=== PATIENT | male | born 1950 | race Caucasian/White ===

== ENCOUNTER 2017-01-31 07:16 | Day surgery (SDC) | payer MEDICARE, BC ==
[~2017-01-31] VITALS: Ht 175.3 cm; Wt 68.0 kg
== END 2017-01-31 08:33 | disposition home or self-care (01) ==
LOC: DS 07:16 → OPS 07:16 → DS 08:00 → OPS 08:00
PROC: 08RJ3JZ Replacement of Right Lens with Synthetic Substitute, Percutaneous Approach (ICD-10-PCS; principal; 2017-01-31)
DX: H25.11 Age-related nuclear cataract, right eye (principal); E78.00 Pure hypercholesterolemia, unspecified; I51.9 Heart disease, unspecified; Z87.820 Personal history of traumatic brain injury; Z98.890 Other specified postprocedural states
CPT/HCPCS: 00140; J2250

== ENCOUNTER 2017-02-12 08:12 | Day surgery (SDC) | payer MEDICARE, BC ==
[~2017-02-12] VITALS: Ht 175.3 cm; Wt 68.0 kg
--- NOTE | 2017-02-12 11:39 | NUR ---
02/12/17 1139 Julianne Clemente 1130 BRICK SETTER AT BEDSIDE. PT USING URINAL, 500ML OUTPUT, CLEAR YELLOW URINE. BRICK SETTER VERBAL ORDER FOR ANOTHER 500ML OF LR IV NOW.
--- NOTE | 2017-02-12 18:19 | EKG ---
[facility] [address] [facility] [place] [address] Signed Sinus bradycardia with frequent premature ventricular complexes Rightward axis Borderline ECG No previous ECGs available Confirmed by WALKER ANDRADE MD ([id number]) on 02/12/2017 6:18:50 PM Electronically Signed By: WALKER ANDRADE MD 02/12/17 1819 PATIENT NAME: KILEY OLSEN Electrocardiogram DATE OF : 48 PHYSICIAN: WALKER ANDRADE MD REPORT #: [id number] REPORT IS CONFIDENTIAL AND NOT TO BE RELEASED WITHOUT AUTHORIZATION
== END 2017-02-12 12:25 | disposition home or self-care (01) ==
LOC: OPS 08:12 → DS 08:12 → OPS 09:15 → DS 09:15 → OPS 12:25
PROC: 08RK3JZ Replacement of Left Lens with Synthetic Substitute, Percutaneous Approach (ICD-10-PCS; principal; 2017-02-12)
DX: H25.812 Combined forms of age-related cataract, left eye (principal); I25.10 Atherosclerotic heart disease of native coronary artery without angina pectoris; Z95.5 Presence of coronary angioplasty implant and graft
CPT/HCPCS: 00140; 93005; 93010; J2250; J7120

== ENCOUNTER 2024-03-23 06:00 | Emergency (ER) | payer MEDICARE, BC ==
[~2024-03-23] VITALS: Ht 172.7 cm; Wt 68.2 kg
[~2024-03-23 06:00] MED LIST: ASPIRIN81 MG PO; FISH OIL + D31 EACH PO
[2024-03-23 06:15] LABS: BASOPHILS 4.2 % (0-2); HEMATOCRIT 48.2 % (35.0-50.0); HEMOGLOBIN 16.2 g/dL (12.0-18.0); LYMPHOCYTES 23.7 % (24-44); MCH 33.2 (27-36); MCHC 33.7 g/dl (30-36); MCV 98.5 fl (81-99); MONOCYTES 12.8 % (0-12); NEUTROPHILS 52.3 % (39-80); PLATELET COUNT 181 K/uL (140-440); RBC 4.89 M/ul (4.3-5.7); RDW 12.9 (10.5-15.0)
[2024-03-23] MEDS ORDERED: FAMOTIDINE 20 MG/ 2 ML VIAL IV ONE (06:15)
[2024-03-23] MEDS ORDERED: ASPIRIN 325 MG TAB PO ONE (06:15)
[2024-03-23] MEDS ORDERED: NITROGLYCERIN 0.4 MG SUBL SL PRN (06:15)
[2024-03-23] MEDS ORDERED: ASPIRIN 81 MG CHEW PO ONE (06:15)
[2024-03-23 06:32] LABS: ALBUMIN 3.8 g/dL (3.4-5.0); ALBUMIN/GLOBULIN RATIO 1.09 (1.1-2.4); BILIRUBIN, TOTAL 0.3 ng/dL (0.2-1.0); BUN/CREATININE RATIO 30.63 (6.0-28.6); CALCIUM 9.1 mg/dL (8.5-10.1); CREATININE, SERUM 1.11 mg/dL (0.70-1.30); PROTEIN, TOTAL 7.3 g/dL (6.4-8.2)
[2024-03-23 07:25] LABS: INFLUENZA B NAA NEGATIVE (NEGATIVE); RESPIRATORY SYNCYTIAL VIR NAA NEGATIVE (NEGATIVE)
[2024-03-23 08:43] VITALS: BP 172/80
--- NOTE | 2024-03-26 20:24 | EKG ---
[facility] [address] [facility] [place] [address] Signed Sinus rhythm with occasional premature ventricular complexes Otherwise normal ECG No previous ECGs available Confirmed by Vikas Gonzales DO ([id number]) on 03/26/2024 8:24:04 PM Electronically Signed By: VIKAS GONZALES DO 03/26/242023 PATIENT NAME: KILEY OLSEN Electrocardiogram DATE OF : 48 PHYSICIAN: VIKAS GONZALES DO REPORT #: [id number] REPORT IS CONFIDENTIAL AND NOT TO BE RELEASED WITHOUT AUTHORIZATION
== END 2024-03-23 08:46 | disposition home or self-care (01) ==
LOC: ED 06:00
PROVIDERS: Internal Medicine
DX: R06.02 Shortness of breath (principal); R07.89 Other chest pain; I25.10 Atherosclerotic heart disease of native coronary artery without angina pectoris; Z95.5 Presence of coronary angioplasty implant and graft; Z79.82 Long term (current) use of aspirin; Z79.899 Other long term (current) drug therapy
CPT/HCPCS: 36415; 71045; 80053; 83735; 83880; 84484; 85025; 85379; 87502; 93005; 93010; 96374; 99285-25; A9270; U0002

== ENCOUNTER 2024-03-30 08:57 | Emergency (ER) | payer MEDICARE, BC ==
[~2024-03-30] VITALS: Ht 172.7 cm; Wt 67.1 kg
--- OUTSIDE RECORDS SUMMARY | 2024-03-30 09:00 | XMS ---
PreManage Notification: KILEY OLSEN [facility] Director Events No recent Security Events currently on file CRITERIA MET - [facility] - 2 Visits in 30 Days CARE PROVIDERS There are no care providers on record at this time. Jemma has no Care Guidelines for this patient. Dre VISIT COUNT (12 MO.) 2 [facility] TOTAL 2 NOTE: Visits indicate total known visits. ED/[facility] VISIT TRACKING (12 MO.) [facility]24 08[facility] [place] [facility] COMPLAINT: - DIZZY 03/23/2024 06:01 [facility] [place] TYPE: Emergency COMPLAINT: - SHORTNESS OF BREATH DIAGNOSES: - Atherosclerotic heart disease of [place] coronary artery without angina pectoris - penitentiary (current) use of aspirin - Other chest pain - Other intermediate (current) drug therapy - Presence of coronary angioplasty implant and graft - Shortness of breath INPATIENT VISIT TRACKING (12 MO.) No inpatient visits to display in this time frame [id number]
[2024-03-30 09:18] LABS: BASOPHILS 0.9 % (0-2); EOSINOPHILS 2.5 % (0-6); HEMATOCRIT 47.5 % (35.0-50.0); HEMOGLOBIN 16.4 g/dL (12.0-18.0); LYMPHOCYTES 22.2 % (24-44); MCH 33.7 (27-36); MCHC 34.5 g/dl (30-36); MCV 97.9 fl (81-99); MONOCYTES 11.4 % (0-12); PLATELET COUNT 183 K/uL (140-440); RBC 4.86 M/ul (4.3-5.7); RDW 12.9 (10.5-15.0)
[2024-03-30 09:35] LABS: ALBUMIN 3.8 g/dL (3.4-5.0); ALBUMIN/GLOBULIN RATIO 1.12 (1.1-2.4); ANION GAP 10.7 (7-21); BILIRUBIN, TOTAL 0.5 ng/dL (0.2-1.0); BUN/CREATININE RATIO 23.23 (6.0-28.6); CALCIUM 9.6 mg/dL (8.5-10.1); CREATININE, SERUM 0.99 mg/dL (0.70-1.30); POTASSIUM 3.7 mmol/L (3.5-5.1); PROTEIN, TOTAL 7.2 g/dL (6.4-8.2)
[2024-03-30 10:48] VITALS: BP 171/66
--- NOTE | 2024-03-30 19:20 | EKG ---
[facility] [address] [facility] [place] [address] Signed Sinus bradycardia Otherwise normal ECG When compared with ECG of 23-MAR-2024 06:05, premature ventricular complexes are no longer present Confirmed by Joey Hickey MD ([id number]) on 03/30/2024 7:20:39 PM Electronically Signed By: JOEY HICKEY MD 03/30/241919 PATIENT NAME: KILEY OLSEN RODMARGO Electrocardiogram DATE OF : 48 PHYSICIAN: JOEY HICKEY MD REPORT #: [id number] REPORT IS CONFIDENTIAL AND NOT TO BE RELEASED WITHOUT AUTHORIZATION
== END 2024-03-30 10:48 | disposition home or self-care (01) ==
LOC: ED 08:57
PROVIDERS: Emergency Medicine
DX: R06.00 Dyspnea, unspecified (principal); I25.10 Atherosclerotic heart disease of native coronary artery without angina pectoris; Z95.5 Presence of coronary angioplasty implant and graft; Z79.82 Long term (current) use of aspirin; Z79.899 Other long term (current) drug therapy
CPT/HCPCS: 36415; 80053; 83880; 84443; 84484; 85025; 85379; 99285

== ENCOUNTER 2024-04-04 03:50 | Emergency (ER) | payer MEDICARE, BC ==
[~2024-04-04] VITALS: Ht 172.7 cm; Wt 69.9 kg
--- OUTSIDE RECORDS SUMMARY | 2024-04-04 03:57 | XMS ---
PreManage Notification: KILEY OLSEN [employer] Attendant Events No recent Security Events currently on file CRITERIA MET - [facility] - 2 Visits in 30 Days CARE PROVIDERS There are no care providers on record at this time. Jemma has no Care Guidelines for this patient. Dre VISIT COUNT (12 MO.) 3 [facility] [place] [facility]. TOTAL 3 NOTE: Visits indicate total known visits. ED/C VISIT TRACKING (12 MO.) 04/04/2024 03:50 [facility] [place] TYPE: Emergency COMPLAINT: - SOB 03/30/2024 08:57 [facility] [place] TYPE: Emergency COMPLAINT: - DIZZY DIAGNOSES: - Atherosclerotic heart disease of [place] coronary artery without angina pectoris - Dyspnea, unspecified - Hyperventilation - engine lathe tender (current) use of aspirin - Other surveyor mine (current) drug therapy - Presence of coronary angioplasty implant and graft 03/23/2024 06:01 [facility] [place] TYPE: Emergency COMPLAINT: - SHORTNESS OF BREATH DIAGNOSES: - Atherosclerotic heart disease of [place] coronary artery without angina pectoris - engine lathe tender (current) use of aspirin - Other chest pain - Other surveyor mine (current) drug therapy - Presence of coronary angioplasty implant and graft - Shortness of breath INPATIENT VISIT TRACKING (12 MO.) No inpatient visits to display in this time frame [id number]
[2024-04-04 04:13] LABS: BASOPHILS 0.8 % (0-2); EOSINOPHILS 4.6 % (0-6); HEMATOCRIT 46.2 % (35.0-50.0); HEMOGLOBIN 15.8 g/dL (12.0-18.0); LYMPHOCYTES 20.5 % (24-44); MCH 33.4 (27-36); MCHC 34.2 g/dl (30-36); MCV 97.5 fl (81-99); MONOCYTES 11.6 % (0-12); NEUTROPHILS 62.5 % (39-80); PLATELET COUNT 182 K/uL (140-440); RBC 4.74 M/ul (4.3-5.7)
[2024-04-04 04:19] LABS: INR 0.95 (0.80-1.30); PROTIME 12.6 Sec (11.2-14.2)
[2024-04-04 04:24] LABS: ALBUMIN 3.6 g/dL (3.4-5.0); ALBUMIN/GLOBULIN RATIO 1.03 (1.1-2.4); BILIRUBIN, TOTAL 0.5 ng/dL (0.2-1.0); BUN/CREATININE RATIO 36.36 (6.0-28.6); CALCIUM 8.8 mg/dL (8.5-10.1); CREATININE, SERUM 0.99 mg/dL (0.70-1.30); PROTEIN, TOTAL 7.1 g/dL (6.4-8.2)
[2024-04-04 05:09] LABS: BILIRUBIN, URINE NEGATIVE (negative); BLOOD/HGB, URINE TRACE-I (Negative); KETONE, URINE NEGATIVE (Negative); LEUK ESTERASE, URINE NEGATIVE (negative); NITRITE, URINE NEGATIVE (negative); PH, URINE 6.5 (5-7)
[2024-04-04 05:15] LABS: EPITHELIAL CELLS, URINE SQUAMOUS 1+ /lpf (0-1+)
[2024-04-04 05:16] LABS: BACTERIA, URINE RARE /hpf (negative); CASTS, URINE NONE SEEN \\lpf; COLLECTION TYPE, URINE CLEAN CATCH; CRYSTALS, URINE NONE SEEN (0-1+); REFLEX CULTURE, URINE No (No); WHITE BLOOD CELLS, URINE 0-1 /HPF (0-5)
[2024-04-04 05:25] LABS: AMPHETAMINES, URINE NEGATIVE (NEGATIVE); BARBITURATES, URINE NEGATIVE (NEGATIVE); BENZODIAZEPINE, URINE NEGATIVE (NEGATIVE); BUPRENORPHINE, URINE NEGATIVE (NEGATIVE); CANNABINOID, URINE NEGATIVE (NEGATIVE); COCAINE, URINE NEGATIVE (NEGATIVE); ECSTASY, URINE NEGATIVE (NEGATIVE); FENTANYL, URINE NEGATIVE (NEGATIVE); METHADONE, URINE NEGATIVE (NEGATIVE); OPIATES, URINE NEGATIVE (NEGATIVE); OXYCODONE, URINE NEGATIVE (NEGATIVE); PHENCYCLIDINE, URINE NEGATIVE (NEGATIVE)
[2024-04-04 05:34] VITALS: BP 147/72
--- NOTE | 2024-04-04 21:58 | EKG ---
[facility] [address] [place] [address] Signed Sinus bradycardia with 1st degree AV block Otherwise normal ECG When compared with ECG of 30-MAR-2024 09:11, [place] interval has increased Confirmed by Jose Steel MD () on 04/04/2024 9:58:13 PM Electronically Signed By: JOSE STEEL MD 04/04/24 2158 PATIENT NAME: PRETTYKILEYDELMI VELASCOMARGO Electrocardiogram DATE OF : 48 PHYSICIAN: JOSE STEEL MD REPORT #: [id number] REPORT IS CONFIDENTIAL AND NOT TO BE RELEASED WITHOUT AUTHORIZATION
== END 2024-04-04 05:35 | disposition home or self-care (01) ==
LOC: ED 03:50
PROVIDERS: Family Medicine
DX: R53.1 Weakness (principal); Z95.5 Presence of coronary angioplasty implant and graft; Z79.82 Long term (current) use of aspirin; Z79.899 Other long term (current) drug therapy
CPT/HCPCS: 36415; 70450; 71045; 80053; 80307; 81001; 83735; 84484; 85025; 85610; 93005; 93010; 99285-25; G0480

== ENCOUNTER 2024-06-19 10:18 | Inpatient (IN) | payer MEDICARE, BC ==
[~2024-06-19] VITALS: Ht 172.7 cm; Wt 65.3 kg
--- NOTE | 2024-06-19 13:10 | NUR ---
PT ARRIVES TO FLOOR VIA WHEELCHAIR AND ACCOMPANIED BY . PT REQUESTING TO USE THE RESTROOM. AMBULATES WITH 1PA TO RESTROOM, CHANGES INTO GOWN, AND HAS SMALL BOWEL MOVEMENT. PT ASSISTED WITH ABBEY-CARE. PT AMBULATES WITH 1PA TO BED. WT AND VS OBTAINED.
[2024-06-19 13:17] VITALS: BP 177/90
[2024-06-19] MEDS ORDERED: ROSUVASTATIN CA20 MG PO (13:17)
--- NOTE | 2024-06-19 14:00 | NUR ---
ADMISSION COMPLETED. PT DOES NOT HAVE IV ACCESS, NOTIFIED AND STATES THIS IS OKAY. LUNG SOUNDS CLEAR THROUGHOUT, HEART RATE REGULAR. BOWEL TONES ACTIVE, ABDOMEN IS SOFT AND NON-TENDER, PT REPORTS HE FEELS HE WILL HAVE ANOTHER BOWEL MOVEMENT THIS AFTERNOON. SURGICAL DRESSING TO R HIP/FLANK, CLEAN DRY AND INTACT. SURGICAL DRESSING TO LUMBAR BACK IS CLEAN DRY AND INTACT WITH BANDAID OFF TO R OF DRESSING WHERE HEMOVAC WAS REMOVED AT [facility] THIS MORNING. PT REPORTING LOWER BACK PAIN RATED 5/10, STATES HIS GOAL PAIN LEVEL IS 0/10 BUT DOES NOT REQUEST INTERVENTIONS AT THIS TIME. PT SUPPLIED WITH TWO WARM BLANKETS, HE IS REPORTING THE TRIP OVER WAS COLD. AND PT REPORT THAT PT HAD A DIFFICULT TIME COMING AROUND AFTER SURGERY AND THAT HE WAS CONFUSED EVEN TO PERSON UNTIL THIS SUNDAY BUT HE HAS BEEN FEELING BETTER ON A DAILY BASIS. ICE WATER SUPPLIED. PT HAS SEVERAL BANANAS HE HAS BROUGHT WITH HIM AND IS SNACKING ON THIS. PT ORIENTED TO ROOM, NO REQUESTS AT THIS TIME, CALL LIGHT AND PERSONAL BELONGINGS IN REACH.
[2024-06-19] MEDS ORDERED: HYDROCODON-ACE1 EA10 PO (14:54)
--- NOTE | 2024-06-19 15:00 | NUR ---
PATIENT SITTING UP IN BED. DAUGHTER GREG AND LEIDY AT BEDSIDE. PERSONAL HEALTH INFORMATION REVIEWED. PATIENT LIVES IN A HOUSE HERE IN [place]. ONE STEP TO GET INTO. STATES HE HAS HAD DIFFCULTY SINCE THE BACK INJURY GETTING AROUND. HE IS AN ACTIVE KEN THAT WOULD WALK 3 MILES A DAY, WORK OUTSIDE AND INSIDE THE HOUSE. 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 HE EXPRESSES HIS WANT TO GET STRONGER. HE STATES HE WOULD LIKE TO DO STAIRS AND BE ABLE TO GROCERY SHOP HERE IN THE NEAR FUTURE. HE IS AGREEABLE TO OUR TRANSITIONAL CARE REQUIREMENTS. NO OTHER QUESTIONS AT THIS TIME. NO OTHER CM NEEDS AT THIS TIME.
[2024-06-19] MEDS ORDERED: ONDANSETRON 4 MG TAB ODT SL PRN (16:45)
[2024-06-19] MEDS ORDERED: IBUPROFEN 600 MG TAB PO PRN (16:45)
--- NOTE | 2024-06-19 17:57 | NUR ---
medications reconciled using pharmacy records
--- NOTE | 2024-06-19 18:04 | NUR ---
PRN PAIN MEDICATION ADMINISTERED, SEE MAR. PT REQUESTING TO WALK HALLS WITH HIS FAMILY. BACK BRACE IS IN PLACE, PT AMBULATING WITH FWW AND TWO FAMILY MEMBERS.
--- NOTE | 2024-06-19 19:25 | NUR ---
RECEIVED REPORT. PT RESTING IN BED WITH EYES CLOSED, OBSERVED RISE AND FALL OF CHEST. CALL LIGHT IN REACH ON BED
[2024-06-19 20:06] VITALS: BP 135/64
--- NOTE | 2024-06-19 20:08 | NUR ---
PRESTIDIGITATOR OBTAINED VITALS AND I&O. PT ASSISTED TO THE BATHROOM WITH WALKER AND BACK BRACE IN PLACE. PT VOIDED AND ASSISTED BACK TO BED. PT STATES NO FURTHER NEEDS AT THIS TIME. CALL LIGHT WITHIN REACH.
--- NOTE | 2024-06-19 20:13 | NUR ---
ASSESSMENT. PT REPORTS PAIN AT 3/10 PRESENTLY. PT REQUESTS TO SLEEP TONIGHT. NO OTHER NEEDS IDENTIFIED. CALL LIGHT IN REACH
[2024-06-19 20:57] VITALS: BP 135/64
--- NOTE | 2024-06-19 21:50 | NUR ---
PT RESTING IN BED WITH EYES CLOSED, OBSERVED RISE AND FALL OF CHEST. CALL LIGHT IN REACH
--- NOTE | 2024-06-19 23:31 | NUR ---
PT RESTING WITH EYES CLOSED, AUDIBLE BREATHING HEARD. CALL LIGHT IN REACH
--- NOTE | 2024-06-20 01:48 | NUR ---
PT RESTING WITH EYES CLOSED, NOTED RISE AND FALL OF CHEST. CALL LIGHT IN REACH
--- NOTE | 2024-06-20 03:43 | NUR ---
rounded on pt, asleep in bed with observed rise and fall of chest. call light in reach
--- NOTE | 2024-06-20 04:27 | NUR ---
ASSISTED PT TO BATHROOM. GIVEN PRN MOTRIN FOR 5/10 BACK PAIN. MORNING ASSESSMENT. CALL LIGHT IN REACH
--- NOTE | 2024-06-20 05:21 | NUR ---
PT A&OX4, RECOVERING WELL S/P LUMBAR FUSION ON 06/14. PT SLEPT FOR MUCH OF SHIFT. GIVEN MOTRIN 600MG ONCE FOR 4/10 BACK PAIN, DECLINES OTHER INTERVENTIONS. PT UP SBA WITH FWW AND BACK BRACE OUT OF BED. VOIDS TO BATHROOM. DRESSING ON L HIP AND LUMBAR C/D/I. PLAN FOR ADDITIONAL PT/OT TODAY. CALL LIGHT IN REACH
--- NOTE | 2024-06-20 07:18 | NUR ---
REPORT RECEIVED FROM JO ANN DAUGHERTY. PT STANDING IN RESTROOM, BACK BRACE ON, FWW IN FRONT OF HIM, SHAVING HIS FACE AND HEAD. DISCUSSED PHYSICAL THERAPY VISITING TODAY WELL PTs AMBULATION. PT AGREEABLE AND EXCITED TO BEGIN WORKING WITH PHYSICAL THERAPY. NO REQUESTS AT THIS TIME.
--- NOTE | 2024-06-20 07:41 | NUR ---
PT AMBULATING IN HALLS WITH FWW AND FAMILY MEMBER BESIDE HIM.
--- NOTE | 2024-06-20 09:00 | NUR ---
Spoke with Sylvester. He denies needs. Looks well and less tired after his trip from [facility] yesterday. Reviewed Transitional Care/Swing bed acknowledgement letter with Sylvester and he stated understanding and signed. No needs.
--- NOTE | 2024-06-20 09:50 | NUR ---
VISITED DURING SPIRITUAL CARE ROUNDS. PT IN OVERALL GOOD SPIRITS, TALKING OF PRE-SURGERY ACTIVITY LEVELS AND DIETARY HABITS, LOOKING FORWARD TO RESUMING ACTIVITY AND OPEN TO DIETARY'S SUGGESTIONS FOR SUPPORTING HEALING, TALKED OF CHALLENGES WITH BUDDHIST MANDAEISM AND SPIRITUAL PAIN ARISING FROM HARM DONE BY MANDAEISM LEADERSHIP, DECLINED PACKAGING MECHANIC VISIT, EXPRESSED INTEREST IN EXPLORING OTHER [place] TRADITIONS. HERBICIDE SERVICE SALES REPRESENTATIVE PROVIDED SUPPORTIVE PRESENCE, HOSPITALITY, EXPLORED KATY PRACTICES, PROVIDED PRAYER. PT EXPRESSED GRATITUDE, INTEREST IN FUTURE CONVERSATION.
[2024-06-20 10:04] VITALS: BP 100/57
[2024-06-20] MEDS ORDERED: HYDROCODONE/ACETA 5/325 TAB PO PRN (11:30)
[2024-06-20] MEDS ORDERED: PHARMACY RENAL DOSE ADJUSTMENT 1 DOSE MISC PO SCH (12:00)
--- NOTE | 2024-06-20 14:00 | NUR ---
PT AMBULATING DOWN [place] WITH FWW AND DIETARY. PT IS NOT WEARING HIS BACK BRACE. PT STOPS IN [place], SAMMIE RN AND KRYS RN RETRIEVE BACK BRACE AND ASSIST PT IN PUTTING THIS ON. PT RESUMES WALKING WITH FWW AND DIETARY.
--- NOTE | 2024-06-20 14:27 | NUR ---
PT AMBULATING IN HALLS INDEPENDENTLY.
--- NOTE | 2024-06-20 16:27 | NUR ---
MET WITH ELIZABETH A COUPLE OF TIMES TODAY. HE IS A VERY HEALTHY EATER AND HAS A GOOD APPETITE. HE IS ON A REGULAR DIET. HE DOESN'T EAT MANY PROCESSED FOODS AT ALL. WE WORKED TOGETHER TO GET ALL OF HIS LIKES AND DISLIKES. HE ASKS ABOUT PROTEIN FOR HEALING OR IF THERE ARE OTHER DIETARY FACTORS THAT HE SHOULD CONSIDER. I PROVIDED A HANDOUT ON HIS PROTEIN NEEDS (80 TO 130 GM PROTEIN/DAY AT 1.2 - 2.0 GM/KG CBW). EXPLAINED TO SPREAD HIS PROTEIN INTAKE THROUGHOUT THE DAY AND TO EAT A VARIETY OF PROTEIN THROUGHOUT THE WEEK. PROVIDED EXAMPLES OF HOW TO GET PROTEIN FOR SNACKS WELL. ALL OF HIS PREFERENCES ARE IN THE MEAL IQ. PATIENT IS AT LOW NUTRITION RISK. THIS RD WILL FOLLOW UP WITH PATIENT ON SUNDAY TO ENSURE HE IS ENJOYING HIS MEALS SO FAR.
[2024-06-20 18:03] VITALS: BP 100/57
[2024-06-20 19:20] VITALS: BP 146/78
--- NOTE | 2024-06-20 19:20 | NUR ---
RECIEVED REPORT. PT RESTING IN BED CURRENTLY, REQUESTS TO GO TO SLEEP EARLY TONIGHT. PERFORMED VITAL AND ASSESSMENT. PT IN 08/02 PAIN, MILDLY IMPROVED FROM NORCO RECEIVED EARLIER, BUT HOPES IT WILL IMPROVE MORE. OFFERED TO CHECK BACK IN 1 HOUR TO SEE IF MOTRIN IS NECESSARY OR IF PAIN IS IMPROVED, PT AGREES WITH PLAN. CALL LIGHT IN REACH
--- NOTE | 2024-06-20 20:54 | NUR ---
CALL LIGHT ANSWERED. PT NEEDED TO USE BATHROOM. BACK BRACE ON PT AND DUMPER BAILER OPERATOR SBA WITH FWW TO BATHROOM. PT VOIDED AND ASSISTED BACK TO BED. PT STATES NO FURTHER NEEDS AT THIS TIME. CALL LIGHT WITHIN REACH.
--- NOTE | 2024-06-20 21:57 | NUR ---
ASSISTED TO BATHROOM SBA WITH WALKER AND BACK BRACE. PT REPORTS PAIN IS MUCH IMPROVED FROM EARLIER, DECLINES MOTRIN FOR NOW. CALL LIGHT IN REACH
[2024-06-20 23:01] VITALS: BP 146/78
--- NOTE | 2024-06-20 23:11 | NUR ---
CALL LIGHT ANSWERED. PT NEEDED TO USE BATHROOM. PT PUT BACK BRACE ON AND FLOORING HELPER SBA WITH FWW TO BATHROOM. PT VOIDED AND ASSISTED BACK TO BED. PT REQUESTED MOTRIN. PRIMARY RN NOTIFED. PT STATES NO FURTHER NEEDS AT THIS TIME. CALL LIGHT WITHIN REACH.
--- NOTE | 2024-06-20 23:19 | NUR ---
PT REQUESTS PRN IBUPROFEN FOR INCREASING BACK PAIN. GIVEN IBUPROFEN, OFFERED HEAT WELL, PT DECLINES FOR NOW. CALL LIGHT IN REACH
[2024-06-21] VITALS (7 sets, daily range): BP systolic 11–151; BP diastolic 57–90
--- NOTE | 2024-06-21 00:40 | NUR ---
pt resting in bed with eyes closed, observed rise and fall of chest, call light in reach
--- NOTE | 2024-06-21 01:10 | NUR ---
CALL LIGHT ANSWERED. PT NEEDED TO USE BATHROOM. PT PUT ON BACK BRACE AND HOT REPAIRMAN SBA TO BATHROOM. PT VOIDED AND ASSISTED BACK TO BED. PT STATES NO FURTHER NEEDS AT THIS TIME. CALL LIGHT WITHIN REACH.
--- NOTE | 2024-06-21 02:14 | NUR ---
PT RESTING IN BED. REPORTS PAIN IS IMPROVED FROM PREVIOUS, DENIES PAIN MEDICATION FOR NOW. CALL LIGHT IN REACH
--- NOTE | 2024-06-21 03:56 | NUR ---
ASSISTED PT TO BATHROOM. PT STATES PAIN IS IMPROVED FROM EARLIER, DECLINES OTHER MEDICATIONS FOR NOW. CALL LIGHT IN REACH
--- NOTE | 2024-06-21 06:13 | NUR ---
PT WITH 5-6/10 PAIN WELL CONTROLLED WITH PREVIOUSLY GIVEN DOSE OF NORCO AND MOTRIN X1. OFFERED HEAT ON BACK, THOUGH PT DECLINES FOR NOW. LUMBAR AND R HIP DRESSINGS C/D/I. PT MOVING INDEPENDENTLY WITH FWW AFTER SET UP WITH BACK BRACE WHILE OOB. PLAN TO CONTINUE PT/OT TODAY.
--- NOTE | 2024-06-21 06:45 | NUR ---
PT REQUESTED TO GO FOR WALK. PT PUT ON BACK BRACE AND LIQUOR BLENDER SBA WITH FWW FOR 3 LAPS AROUND UNIT. PT AMBULATED WELL WITH STEADY GAIT. ONCE BACK IN ROOM PT VOIDED AND SHAVED. PT THEN ASSISTED TO CHAIR. PT STATES NO FURTHER NEEDS AT THIS TIME. CALL LIGHT WITHIN REACH.
--- NOTE | 2024-06-21 07:46 | NUR ---
PT AWAKE, ALERT AND ORIENTED, WALKED HALLWAYS SEVERAL TIMES, USING BACK BRACE AND FWW. BACK TO ROOM. NO C/O PAIN. ON ROOM AIR, ONUR, NO BM TODAY. LOW BACK DRESSING IN PLACE.
--- NOTE | 2024-06-21 10:20 | NUR ---
RECIEVED HAND OFF REPORT FROM JO ANN COCHRAN. PT AWAKE IN BED, DENIES NEEDS. CALL LIGHT IN REACH.
--- NOTE | 2024-06-21 11:12 | NUR ---
PT AWAKE IN BED, DENIES NEEDS. CALL LIGHT IN REACH.
--- NOTE | 2024-06-21 12:45 | NUR ---
PT EATING LUNCH IN CHAIR. DENIES NEEDS. CALL LIGHT IN REACH
--- NOTE | 2024-06-21 14:20 | NUR ---
PT AWAKE IN BED, VISITOR AT BEDSIDE. CALL LIGHT IN REACH
--- NOTE | 2024-06-21 17:00 | NUR ---
PT SITTING IN RECLINER READY FOR DINNER. CALL LIGHT IN REACH.
--- NOTE | 2024-06-21 18:14 | NUR ---
PT REQUESTED MOTRIN FOR 5/10 LOWER BACK PAIN, ADMINISTERED (PER EMAR). HAD CONCERNS ABOUT DRESSINGS ON BACK AND IF THEY SHOULD BE CHANGED. THIS RN ASSESSED, DRESSING WERE CDI. EXPLAINED TO PT THAT WE HAVE DRESSINGS HERE IF ONE WAS TO FALL OFF, WE CAN REPLACE TO KEEP CLEAN. PT IN AGREEMENT. DENIES NEEDS. CALL LIGHT IN REACH
--- NOTE | 2024-06-21 19:37 | NUR ---
RECEIVED REPORT. PT RESTING IN BED, OBSERVED CHEST RISE AND FALL. CALL LIGHT IN REACH
--- NOTE | 2024-06-21 20:31 | NUR ---
ASSESSMENT. PT RESTING IN BED, REPORTS FEELING WELL TODAY. PAIN CURRENTLY MANAGED WELL WITH MOTRIN PRN, HAS NOT NEEDED NORCO. CALL LIGHT IN REACH
--- NOTE | 2024-06-21 20:57 | NUR ---
PT REPORTS BACK PAIN NOT RELIEVED BY MOTRIN. OFFERED NORCO, PT ACCEPTS. ALSO PROVIDED HEAT PAD FOR BACK TO GOOD EFFECT. ASSISTED PT TO RESTROOM. PT IN BED WITH CALL LIGHT IN REACH
--- NOTE | 2024-06-21 22:56 | NUR ---
PT RESTING WITH EYES CLOSED, OBSERVED RISE AND FALL OF CHEST, CALL LIGHT IN REACH
[2024-06-22] VITALS (8 sets, daily range): BP systolic 109–143; BP diastolic 56–74
--- NOTE | 2024-06-22 01:03 | NUR ---
PT RESTING IN BED, RISE AND FALL OF CHEST SEEN. CALL LIGHT IN REACH
--- NOTE | 2024-06-22 02:52 | NUR ---
PT IN BED WITH EYES CLOSED, BREATHING AUDIBLE. CALL LIGHT IN REACH
--- NOTE | 2024-06-22 07:10 | NUR ---
RECIEVED SHIFT REPORT FROM JO ANN DAUGHERTY. PT AMBULATING HALLWAYS AT THIS TIME. DENIES DISCOMFORT.
--- NOTE | 2024-06-22 07:43 | NUR ---
PT AMBULATING HALLWAY AT THIS TIME.
--- NOTE | 2024-06-22 10:01 | NUR ---
MORNING ASSESSMENT COMPLETE. PT AWAKE IN BED, DENIES PAIN. MAGAZINE WRITER REPORTED WHILE PT WAS IN SHOWER LEGS BECAME PURPLE WHILE STANDING AND SITTING ON SIDE OF BED FOR A PERIOD OF TIME. ONCE IN BED LEGS ELEVATED AND PURPLE COLOR SUBSIDED. THIS RN ASSESSED NO DISCOLORATION NOTED, FEET COLD TO TOUCH, DENIES NUMBNESS AND TINGLING. PT REQUESTED TO WALK, WITH CANE BUT WAS TOLD BY PHYSICAL THERP TO HAVE SOMEONE STANDBY JUST INCASE. JEAN CARLOS RN ASSISTING PT.
--- NOTE | 2024-06-22 10:15 | NUR ---
PT AMBULATING HALLWAY USING CANE, SBA WITH JEAN CARLOS RN
--- NOTE | 2024-06-22 11:30 | NUR ---
PT AMBULATING HALLWAY WITH FAREED BENSON WITH JO ANN EVANGELISTA.
--- NOTE | 2024-06-22 13:15 | NUR ---
PT AMBULATING HALLWAYS. INDEPENDTLY. DENIES NEEDS.
--- NOTE | 2024-06-22 16:39 | NUR ---
PT AWAKE IN BED, VISITOR AT BEDSIDE. DENIES NEEDS AT THIS TIME. CALL LIGHT IN REACH.
--- NOTE | 2024-06-22 19:55 | NUR ---
RECEIVED REPORT. PT SLEEPING BUT EASILY ROUSED. CALL LIGHT IN REACH
--- NOTE | 2024-06-22 20:51 | NUR ---
PT REQUESTS PAIN MEDICATION, GIVEN PRN NORCO FOR 7/10 PAIN. VITALS, ASSESSMENT, ASSISTED TO BATHROOM SBA WITH 4 POINT CANE AND BACK BRACE. PT BACK IN BED WITH HEAD PAD FOR BACK, NO OTHER NEEDS PRESENTLY. CALL LIGHT IN REACH
--- NOTE | 2024-06-22 22:05 | NUR ---
CALL LIGHT ANSWERED. ASSISTED pt TO APPLY BRACE, SBA TO RESTROOM WITH CANE. pt WASHES HANDS, NO ASSISTANCE NEEDED. BACK IN BED, BRACE OFF, CALL LIGHT AND PERSONAL SUPPLIES IN REACH.
--- NOTE | 2024-06-22 22:48 | NUR ---
pt resting with eyes closed, breathing audible. call light inreach
--- NOTE | 2024-06-23 00:07 | NUR ---
PT RESTING IN BED, BREATHING AUDIBLE. CALL LIGHT IN REACH
--- NOTE | 2024-06-23 02:35 | NUR ---
PT IN BED WITH EYES CLOSED, RISE AND FALL OF CHEST OBSERVED. CALL LIGHT IN [place]
--- NOTE | 2024-06-23 03:46 | NUR ---
ASSISTED WITH BACK BRACE TO AMBULATE TO BATHROOM. NO OTHER NEEDS AT THIS TIME. CALL LIGHT INR EACH
--- NOTE | 2024-06-23 06:28 | NUR ---
PT RESTING IN BED WITH EYES CLOSED, CALL LIGHT IN REACH
--- NOTE | 2024-06-23 07:15 | NUR ---
PT UP WALKING HALLS. DENIES NEEDS.
--- NOTE | 2024-06-23 08:39 | NUR ---
morning assessment complete. no new changes. pt walked halls with this rn, sba with cane. tolerated well.
--- NOTE | 2024-06-23 09:10 | NUR ---
Spoke with Sylvester. He states he is doing very well. He has been practicing the stairs and walking in the triplett. Denies needs.
[2024-06-23 09:26] VITALS: BP 111/68
--- NOTE | 2024-06-23 09:28 | NUR ---
PATIENT IN BED AT THIS TIME. ENRICHMENT ASSISTANT CHARTED VITALS AND I&O'S. CALL LIGHT WITHIN REACH, NO FURTHER NEEDS AT THIS TIME.
--- NOTE | 2024-06-23 11:00 | NUR ---
PT AWAKE IN RECLINER, DENIES NEEDS. CALL LIGHT IN REACH
--- NOTE | 2024-06-23 12:18 | NUR ---
PT AMBULATING HALLS WITH CANE, SBA WITH RHETT CARDOZO. TOLERATING WELL
--- NOTE | 2024-06-23 13:45 | NUR ---
PT RESTING IN BED, EYES CLOSED BREATHING EVEN AND UNLABORED. CALL LIGHT IN REACH.
--- NOTE | 2024-06-23 14:20 | NUR ---
VISITED DURING SPIRITUAL CARE ROUNDS. PT APPEARED TO BE SLEEPING. DID NOT DISTURB. PROVIDED PRAYER.
--- NOTE | 2024-06-23 14:48 | NUR ---
PT WALKING HALLWAYS WITH CANE, INDEPENDENTLY. W/O DIFFICULTY.
--- NOTE | 2024-06-23 16:59 | NUR ---
PATIENT GIVEN 2 NORCO FOR 6/10 BACK PAIN
--- NOTE | 2024-06-23 19:28 | NUR ---
RECEIVED REPORT. PT IN BED WITH EYES CLOSED, BREATHING AUDIBLE. CALL LIGHT IN REACH
[2024-06-23 20:03] VITALS: BP 116/68
[2024-06-23 20:04] VITALS: BP 116/68
--- NOTE | 2024-06-23 20:04 | NUR ---
VITALS, ASSESSMENT. PT AMBULATED TO BATHROOM INDEPENDENTLY WITH FWW AFTER ASSISTANCE PUTTING ON BRACE. PT REPORTS HIS PAIN IS WELL MANAGED CURRENTLY. NO OTHER NEEDS, CALL LIGHT IN REACH
--- NOTE | 2024-06-23 22:29 | NUR ---
PT RESTING IN BED WITH EYES CLOSED, CHEST RISE AND FALL OBSERVED. CALL LIGHT IN REACH
[2024-06-23 22:32] VITALS: BP 116/68
--- NOTE | 2024-06-24 00:36 | NUR ---
PT ALERT, GIVEN PRN MOTRIN FOR PAIN. PT ASKS ABOUT DISCHARGE: ESTIMATED DATE AND WHO HE SHOULD FOLLOW UP WITH. INSTRUCTED THAT PHYSICAL THERAPY MAY HAVE A BETTER TIMELINE FOR DISCHARGE, AND I WILL TRY TO FIND OUT MORE ABOUT FOLLOW UP. REFILLED WATER. NO OTHER NEEDS, CALL LIGHT IN REACH
--- NOTE | 2024-06-24 02:14 | NUR ---
PT RESTING IN BED, OBSERVED RISE AND FALL OF CHEST. CALL LIGHT IN REACH
--- NOTE | 2024-06-24 04:30 | NUR ---
GIVEN PO NORCO AND ICE FOR 10/02 PAIN. PT AWOKE WITH PAIN WHICH WORSENED WHEN UP TO THE BATHROOM. INCISIONS C/D/I. CALL LIGHT IN REACH
--- NOTE | 2024-06-24 05:54 | NUR ---
PT A&OX4, VSS ON ROOM AIR. AMBULATED IN HALLWAY INDEPENDENTLY WITH FWW/4POINT CANE AND TSLO BACK BRACE. VOIDESD TO BATHROOM SEVERAL TIMES. GIVEN MOTRIN X1 AND NORCO X1 FOR BACK PAIN. LUMBAR WOUND AND R HIP C/D/I. SLEPT SOUNDLY FOR MUCH OF SHIFT.
--- NOTE | 2024-06-24 07:24 | NUR ---
PT IS WALKING HALLS AT THIS TIME, WITH FWW INDEPENDENTLY. TOLERATING WELL.
--- NOTE | 2024-06-24 07:59 | NUR ---
PATIENT IN BED AT THIS TIME. KETTLE OPERATOR HEAD DID HOURLY ROUNDS. CALL LIGHT WITHIN REACH, NO FURTHER NEEDS AT THIS TIME.
--- NOTE | 2024-06-24 08:06 | NUR ---
PATIENT IIN CHAIR AT THIS TIME. INSIDE PARTS SALES DID HOURLY ROUNDS. CALL LIGHT WITHIN REACH, NO FURTHER NEEDS AT THIS TIME.
--- NOTE | 2024-06-24 09:00 | NUR ---
Spoke with pt and his , Ne. Pt is wanting to know when he can go home. states concern as she feels pt always "rushes things". I let them know we will need to speak with the PT. They will need to evaluate Sylvester today. Pt will also need a home visit for a safety check also. is leaving to work, I will call her. PT updated.
[2024-06-24 09:39] VITALS: BP 113/48
--- NOTE | 2024-06-24 09:39 | NUR ---
PATIENT IN CHAIR AT THIS TIME. SALESPERSON PIANOS AND ORGANS CHARTED VITALS AND I&O'S. CALL LIGHT WITHIN REACH, NO FURTHER NEEDS AT THIS TIME.
--- NOTE | 2024-06-24 10:00 | NUR ---
Update from PT. They would like to have a home visit tomorrow. Pt will need a a tube shower bench and quad cane. I called pts and updated. She can do the home visit tomorrow and will drive pt home. UPdate pt can stay home for a while before he returns to see how he does at home. Per PT possible dc on Sunday if all goes well. I will leave the [employer] form in the pts room for , Ne.
--- NOTE | 2024-06-24 10:13 | NUR ---
MORNING ASSESSMENT COMPLETE. PT IS SITTING UP IN RECLINER, JUST FINIHSED PHYSICAL THERAPY REQUESTING PAIN MEDICATION, ADMINISTERED (PER EMAR). PT HAS CONCERNS THAT AFTER DC PHYSICAL THERAPY DISCUSSED PT TO [place] WITH PT AT THE [facility]. DISCUSSED WITH JO ANN MENDEZ CHARGE NURSE WHO CONTACTED [facility]. CALL LIGHT IN REACH
--- NOTE | 2024-06-24 11:45 | NUR ---
PT AMBULATING UNIT, FWW, INDEPENDENTLY. TOLERATING WELL
--- NOTE | 2024-06-24 14:00 | NUR ---
pt is resting in chair. awake. denies needs. call light in reach.
--- NOTE | 2024-06-24 16:42 | NUR ---
PATIENT SITTING UP IN CHAIR TALKING WITH . ICE CREAM VENDOR WENT INTO PATIENTS ROOM FOR HOURLY ROUNDS. CALL LIGHT WITHIN REACH, NO FURTHER NEEDS AT THIS TIME.
--- NOTE | 2024-06-24 17:24 | NUR ---
REPORT RECIEVED FROM JO ANN MEDINA. PT SITTING UP IN CHAIR WITH PRESENT IN ROOM. PT BACK BRACE IN PLACE, PT HAS NO CURRENT CONCERNS AT THIS TIME CALL LIGHT IN REACH.
--- NOTE | 2024-06-24 18:03 | NUR ---
PT RETURNED TO BED AND WAS COMPLAINING OF PAIN 4-10, PT GIVEN PRN MOTRIN (SEE EMAR). PT HAS NO OTHER CONCERNS AT THIS TIME AND HAS CALL LIGHT IN REACH.
--- NOTE | 2024-06-24 19:09 | NUR ---
REPORT RECEIVED FROM DAY SHIFT RN. PT LYING IN BED ALERT AND ORIENTED. DENIES NEEDS. WHITE BOARD UPDATED. CALL LIGHT IN REACH.
[2024-06-24 19:45] VITALS: BP 158/70
[2024-06-24 19:51] VITALS: BP 158/70
--- NOTE | 2024-06-24 19:55 | NUR ---
EVENING ASSESSMENT COMPLETE. PT REPORTS BACK PAIN 5/10. PRN FOR PAIN ADMIN PER EMAR. VS AND I&O OBTAINED. LUMBAR DRESSING CDI. PT REPORTS RESIDUAL NUMBNESS IN BLE. STRONG PEDAL PULSES PALPATED. PT UP TO BR WITH BACK BRACE IN PLACE WITH FWW. GAIT STEADY. BACK TO BED, SOPHIA WELL. PT DENIES QUESTIONS OR CONCERNS. CALL LIGHT IN REACH.
--- NOTE | 2024-06-24 22:28 | NUR ---
PT RESTING IN BED WITH EYES CLOSED. RESPIRATIONS EVEN. CALL LIGHT IN REACH.
[2024-06-25] VITALS (7 sets, daily range): BP systolic 109–152; BP diastolic 55–96
--- NOTE | 2024-06-25 02:02 | NUR ---
IN TO OFFER PRN FOR PAIN DICUSSED WITH PT EARLIER. PT UP TO BR WITH BRACE AND FWW INDEPENDENTLY TO VOID. GAIT STEADY. PT REPORTS LOW BACK PAIN R/T PRESSURE FROM THE HOSPITAL BED. WAFFLE MATTRESS OVERLAY PLACED ON BED AND IN RECLINER. PRN FOR PAIN ADMIN PER EMAR. PT REPORTS RELIEF. NO FURTHER NEEDS. CALL LIGHT IN REACH.
--- NOTE | 2024-06-25 03:54 | NUR ---
PT LYING ON RIGHT SIDE RESTING WITH EYES CLOSED. RESPIRATIONS EVEN. CALL LIGHT IN REACH.
--- NOTE | 2024-06-25 06:09 | NUR ---
PT WAS AWAKE AT 0530 WHEN SEAMLESS TUBE DRAWER WENT IN TO ROOM TO RECORD I/O FOR THE NIGHT.
--- NOTE | 2024-06-25 07:00 | NUR ---
PT AMB [place] INDEPENDENTLY WITH BACK BRACE IN PLACE AND FWW. SOPHIA WELL. GAIT STEADY.
--- NOTE | 2024-06-25 07:39 | NUR ---
REPORT RECEIVED FROM WELLNESS TRAINER RN. PATIENT UP AMBULAING THE HALLS WITH BRACE IN PLACE. PATIENT WITH NO NEEDS AT THIS TIME.
--- NOTE | 2024-06-25 09:30 | NUR ---
Spoke Sylvester. He cont. to walk in the triplett. Plan for home visit today. Temporary Absence of Resident form completed and signed by Dr. Paulino and pt.
--- NOTE | 2024-06-25 09:30 | NUR ---
PATIENT IN GYM WITH PT AT THIS TIME.
--- NOTE | 2024-06-25 10:09 | NUR ---
PATIENT WALKING IN HALLWAY WITH PT BACK TO HIS ROOM.
--- NOTE | 2024-06-25 11:12 | NUR ---
VISITED DURING SPIRITUAL CARE ROUNDS. PT IN OVERALL GOOD SPIRITS, TALKED OF FAMILY, [facility] PRACTICES, PLANS FOR RETURNING HOME. SOLDERER ASSEMBLY REPAIR PROVIDED SUPPORTIVE PRESENCE, HOSPITALITY, PRAYER, FACILITATED INTERACTION WITH THERAPY ANIMAL. PT EXPRESSED GRATITUDE.
--- NOTE | 2024-06-25 11:20 | NUR ---
PATIENT WITH OT AT THIS TIME IN ROOM. DENIES ANY NEEDS. CALL LIGHT WITHIN REACH.
--- NOTE | 2024-06-25 13:00 | NUR ---
PATIENT ASSISTED WITH SHOWER. BED LINENS CHANGED. PATIENT DENIES ANY FURTHER NEEDS. CALL LIGHT WITHIN REACH.
--- NOTE | 2024-06-25 13:01 | NUR ---
PATIENT IS IN BED AT THIS TIME RESTING, AND HAS REFUSED FOOD SO FAR. LIVESTOCK SLAUGHTERER CHARTED VITALS AND OUTPUT. CALL LIGHT WITH IN REQACH AND NOTHING ELSE NEEDED AT THIS TIME.
--- NOTE | 2024-06-25 15:16 | NUR ---
PATIENT HAS LEFT THE FACILITY TO ATTEND HIS HOME REVIEW PER PT.
--- NOTE | 2024-06-25 16:00 | NUR ---
Call from Alissa from PT. Pt is wanting to know if he can stay and have dinner with his before returning. Let them know this is fine as it is considered and outing. He just needs to return tonight.
--- NOTE | 2024-06-25 17:31 | NUR ---
PATIENT RETURNED FROM HOME VISIT. RESTING IN RECLINER AT THIS TIME. DENIES ANY NEEDS.
--- NOTE | 2024-06-25 18:41 | NUR ---
PATIENT RESTING IN BED WITH EYES CLOSED. RESPIRATIONS EVEN AND UNLABORED. NO NEEDS AT THIS TIME. CALL LIGHT WITHIN REACH.
--- NOTE | 2024-06-25 19:00 | NUR ---
REPORT RECEIVED FROM JO ANN EVANGELISTA. PATIENT LAYING IN BED WITH EYES OPENED. CALL LIGHT AND PERSONAL BELONGINGS WITHIN REACH.
--- NOTE | 2024-06-25 19:55 | NUR ---
PATIENT HAS 3 DRESSINGS TOTAL. ONE TO PATIENT RIGHT SIDE ABOVE THE HIP, ONE TO PATIENT MID BACK, AND ONE TO PATIENT LEFT LOWER BACK NEXT TO MID BACK DRESSING. LEFT LOWER BACK BANDAID REMOVED, WOUND IS WITHOUT DRAINAGE, REDDNESS, OR SWELLING. WOUND IS CLOSED AND WITHOUT S/SX OF INFECTION; BANDAGE LEFT OFF AT THIS TIME.
--- NOTE | 2024-06-25 20:00 | NUR ---
PATIENT UP TO BATHROOM. PATIENT MEDICATED PER EMAR. FRESH ICE WATER PROVIDED. PATIENT ASSESSMENT AND VS COMPLETED. PATIENT WITHOUT FURTHER NEEDS AT THIS TIME. CALL LIGHT AND PERSONAL BELONGINGS WITHIN REACH. VS STABLE.
--- NOTE | 2024-06-25 21:20 | NUR ---
PATIENT RESTING IN BED WITH HIS EYES CLOSED AND LAYING ON HIS BACK. EVEN AND UNLABORED RESPIRATIONS NOTED. CALL LIGHT AND PERSONAL BELONGINGS WITHIN REACH.
--- NOTE | 2024-06-25 22:23 | NUR ---
PATIENT RESTING ON HIS BACK WITH HIS EYES CLOSED LAYING IN BED. EVEN AND UNLABORED RESPIRATIONS NOTED. CALL LIGHT AND PERSONAL BELONGINGS WITHIN REACH.
--- NOTE | 2024-06-26 | NUR ---
PATIENT RESTING IN BED WITH EYES CLOSED. EVEN AND UNLABORED RESPIRATIONS NOTED. CALL LIGHT AND PERSONAL BELONGINGS WITHIN REACH.
--- NOTE | 2024-06-26 01:39 | NUR ---
PATIENT MEDICATED PER EMAR. PATIENT UP TO BATHROOM WHILE THIS RN IS IN ROOM. PATIENT REFUSED DRESSING CHANGES. FRESH ICE WATER PROVIDED. PATIENT WITHOUT FURTHER NEEDS AT THIS TIME. CALL LIGHT AND PERSONAL BELONGINGS WITHIN REACH.
--- NOTE | 2024-06-26 03:00 | NUR ---
PATIENT RESTING IN BED WITH EYES CLOSED. EVEN AND UNLABORED RESPIRATIONS NOTED. CALL LIGHT AND PERSONAL BELONGINGS WITHIN REACH.
--- NOTE | 2024-06-26 05:00 | NUR ---
PATIENT UP TO BATHROOM AT THIS TIME. CALL LIGHT AND PERSONAL BELONGINGS WITHIN REACH.
--- NOTE | 2024-06-26 05:53 | NUR ---
PATIENT UP AND OUT OF ROOM AMBULATING THE HALLS
--- NOTE | 2024-06-26 07:00 | NUR ---
REPORT RECEIVED FROM SCREEN ROLLER RN SALVATORE. PATIENT IS LYING IN BED WITH HOB ELEVATED AND ON THEIR PHONE. PATIENT RESPIRATIONS ARE EVEN AND UNLABORED. CALL LIGHT AND PERSONAL BELONGINGS ARE WITHIN REACH.
--- NOTE | 2024-06-26 07:35 | NUR ---
PATIENT IS SITTING ON THE COUCH AND SPEAKING WITH HER DAUGHTER UPON RN ENTERING THE ROOM. VITAL SIGNS TAKEN AND ARE DOCUMENTED IN THE CHART. FULL ASSESSMENT COMPLETE AND DOCUMENTED IN THE CHART. PATIENT IS ALERT AND ORIENTED TIMES FOUR. PATIENT IS INDEPENDENT IN THE ROOM WITH THE BACK BRACE IN PLACE. PATIENT WORKS WITH PT AND OT. PATIENT WITH NO IV SITE. PATIENT RATED PAIN 6/10 IN THE LOWER BACK AND PRN MOTRIN ADMINISTERED PER THE [facility]. PATIENT IS ON A REGULAR DIET AND BOWEL TONES ARE ACTIVE IN ALL FOUR QUADRANTS. PATIENT IS ON ROOM AIR AND LUNG SOUNDS ARE CLEAR THROUGHOUT. CARDIAC WITH NORMAL S1 AND S2 ON AUSCULTATION. RADIAL AND PEDAL PULSES ARE STRONG BILATERALLY. SENSATION INTACT WITH NUMBNESS AND TINGLING REPORTED IN THE LLE SINCE SURGERY. CAPILLARY REFILL IN THE UPPER AND LOWER EXTREMITIES IS LESS THAN 3 SECONDS BILATERALLY. NO EDEMA NOTED. DRESSING ON THE MIDLINE BACK AND RIGHT HIP/FLANK ARE CLEAN, DRY, AND INTACT. PATIENT AND FAMILY STATED NO FURHER NEEDS AT THIS TIME. CALL LIGHT AND PERSONAL BELONGINGS ARE WITHIN REACH.
[2024-06-26 07:49] VITALS: BP 107/55
[2024-06-26 07:50] VITALS: BP 107/55
--- NOTE | 2024-06-26 08:30 | NUR ---
PATIENT IS SITTING ON THE COUCH WITH EYES OPEN AND RESPIRATIONS ARE EVEN AND UNLABORED. PATIENT IS TALKING TO HIS DAUGHTER. PATIENT REMAINS INDEPENDENT IN THE ROOM. CALL LIGHT AND PERSONAL BELONGINGS ARE WITHIN REACH.
--- NOTE | 2024-06-26 09:00 | NUR ---
TRANSITIONAL CARE MEETING COMPLETE AT THIS TIME.
[2024-06-26] MEDS ORDERED: OXYCODONE HCL 5 MG TAB PO PRN (09:15)
--- NOTE | 2024-06-26 09:20 | NUR ---
PATIENT IS AMBULATING IN THE HALLWAY WITH BACK BRACE IN PLACE. PATIENT DAUGHTER IS AMBULATING WITH HIM.
[2024-06-26] MEDS ORDERED: POLYETHYLENE GLYCOL 3350 1 PACKET PO ONE (09:45)
--- NOTE | 2024-06-26 11:01 | NUR ---
OCCUPATIONAL THERAPY IS IN THE ROOM AND WORKING WITH THE PATIENT AT THIS TIME.
--- NOTE | 2024-06-26 11:30 | NUR ---
Pt concerned he has not heard from his surgeon for a fu appt. He states they have not called them back. I called and was able to schedule Sylvester 07/01/24 at 4:15. Pt updated. IM letter/ Swing bed notice/ Survey given and pt completed all. Plan for dc tomorrow around 10:00.
--- NOTE | 2024-06-26 11:38 | NUR ---
MIDLINE BACK AND RIGHT SIDE OF HIP DRESSING CHANGED PER ORDERS. PAUL RICHARDS RN IS IN THE ROOM AT THIS TIME. PATIENT TOLERATED WELL. DRESSINGS WITH NO DRAINAGE NOTED. PATIENT PUT BRACE BACK ON AFTER DRESSING CHANGE. PATIENT DAUGHTER IS SITTING ON THE COUCH THROUGHOUT PATIENT INTERACTION. ONE TIME DOSE MIRALAX ADMINISTERED AT THIS TIME. PATIENT STATED NO FURTHER NEEDS AT THIS TIME. CALL LIGHT AND PERSONAL BELONGINGS ARE WITHIN REACH.
--- NOTE | 2024-06-26 12:09 | NUR ---
PATIENT IS SITTING IN THE CHAIR WITH BILATERAL LOWER EXTREMITIES ELEVATED. PATIENT IS SPEAKING TO HIS DAUGHTER WHO IS SITTING ON THE COUCH. CALL LIGHT AND PERSONAL BELONGINGS ARE WITHIN REACH.
--- NOTE | 2024-06-26 13:16 | NUR ---
PATIENT IS SITTING IN THE CHAIR AND SPEAKIN AMBROSEITH HIS DAUGHTER WHO IS SITTING ON THE COUCH. THIS RN EXPLAINED PAIN MEDICATION SCHEDULE AT THIS TIME. PATIENT AND HIS DAUGHTER EXPRESSED UNDERSTANDING. PATIENT STATED NO FURTHER NEEDS AT THIS TIME. CALL LIGHT AND PERSONAL BELONGINGS ARE WITHIN REACH.
[2024-06-26] MEDS ORDERED: IBUPROFEN 400 MG TAB PO SCH (14:00)
[2024-06-26] MEDS ORDERED: ACETAMINOPHEN 500 MG TAB PO SCH (14:00)
--- NOTE | 2024-06-26 15:00 | NUR ---
PATIENT IS AMBULATING INDEPENDENTLY IN THE HALLWAY WITH HIS DAUGHTER. BACK BRACE PLACE.
--- NOTE | 2024-06-26 16:16 | NUR ---
PATIENT IS WALKING IN THE HALLWAY WITH BACK BRACE AND CANE. PATIENT WITH A VISITOR AMBULATING WITH HIM.
--- NOTE | 2024-06-26 17:05 | NUR ---
PATIENT RATES PAIN 3/10 AT THIS TIME. FRESH CUP OF ICE WATER PROVIDED. PATIENT IS LYING IN BED WITH HOB ELEVATED. BACK BRACE IN PLACE. PATIENT STATED NO FURTHER NEEDS AT THIS TIME. CALL LIGHT AND PERSONAL BELONGINGS ARE WITHIN REACH.
--- NOTE | 2024-06-26 18:03 | NUR ---
PATIENT IS LYING IN BED WITH EYES CLOSED AND RESPIRATIONS ARE EVEN AND UNLABORED. TV IS ON. CALL LIGHT AND PERSONAL BELONGINGS ARE WITHIN REACH.
--- NOTE | 2024-06-26 19:10 | NUR ---
REPORT RECEIVED FROM JO ANN MORENO. PATIENT RESTING IN BED WITH EYES CLOSED. EVEN AND UNLABORED RESPIRATIONS NOTED. CALL LIGHT AND PERSONAL BELONGINGS WITHIN REACH.
[2024-06-26 19:55] VITALS: BP 141/72
--- NOTE | 2024-06-26 20:00 | NUR ---
PATIENT ASSESSMENT COMPLETED. PATIENT RESTING IN BED WATCHING SPORTS ON TV. PATIENT REPORTS 4/10 PAIN. TYLENOL AND MOTRIN GIVEN AT THIS TIME. VS TAKEN AND ARE STABLE. FRESH ICE WATER PROVIDED. PATIENT WITHOUT FURTHER NEEDS AT THIS TIME. CALL LIGHT AND PERSONAL BELONGINGS WITHIN REACH.
[2024-06-26 21:00] VITALS: BP 141/72
[2024-06-26 21:01] VITALS: BP 141/72
--- NOTE | 2024-06-26 21:40 | NUR ---
PATIENT RESTING IN BED LAYING ON HIS BACK WITH HIS EYES CLOSED. EVEN AND UNLABORED RESPIRATIONS NOTED. CALL LIGHT AND PERSONAL BELONGINGS WITHIN REACH.
--- NOTE | 2024-06-26 23:30 | NUR ---
PATIENT RESTING IN BED LAYING ON HIS LEFT SIDE WITH EYES CLOSED. EVEN AND UNLABORED RESPIRATIONS NOTED. CALL LIGHT AND PERSONAL BELONGINGS WITHIN REACH.
--- NOTE | 2024-06-27 01:35 | NUR ---
PATIENT UP TO BATHROOM AT THIS TIME. PATIENT MEDICATED PER EMAR. PATIENT WITHOUT FURTHER NEEDS AT THIS TIME. CALL LIGHT AND PERSONAL BELONGINGS WITHIN REACH.
--- NOTE | 2024-06-27 03:03 | NUR ---
PATIENT RESTING IN BED ON HIS LEFT SIDE WITH EYES CLOSED. EVEN AND UNLABORED RESPIRATIONS NOTED. CALL LIGHT AND PERSONAL BELONGINGS WITHIN REACH.
--- NOTE | 2024-06-27 04:35 | NUR ---
PATIENT RESTING IN BED ON HIS LEFT SIDE WITH HIS EYES CLOSED. EVEN AND UNLABORED RESPIRATIONS NOTED. CALL LIGHT AND PERSONAL BELONGINGS WITHIN REACH.
--- NOTE | 2024-06-27 06:00 | NUR ---
PATIENT UP AND WALKING THE HALLS AT THIS TIME.
--- NOTE | 2024-06-27 07:01 | NUR ---
REPORT RECEIVED FROM CAREER EDUCATION TEACHER RN SYLVIE. PATIENT IS SITTING ON THE COUCH WITH BACK BRACE IN PLACE. PATIENT IS SPEAKING TO RN ABOUT PAIN MEDICATION. RN EDUCATED PATIENT ON TYLENOL AND MOTRIN DUE AT 0800. PATIENT EXPRESSED UNDERSTANDING. PATIENT STATED NO FURTHER NEEDS AT THIS TIME. CALL LIGHT AND PERSONAL BELONGINGS ARE WITHIN REACH.
[2024-06-27] MEDS ORDERED: IBUPROFEN400 MG PO (08:18)
[2024-06-27] MEDS ORDERED: OXYCODONE HCL5 MG PO (08:20)
[2024-06-27] MEDS ORDERED: ACETAMINOPHEN500 MG PO (08:21)
--- NOTE | 2024-06-27 09:10 | NUR ---
FULL ASSESSMENT COMPLETE AT THIS TIME. PATIENT IS SITTING UPRIGHT ON THE EDGE OF BED. PATIENT IS ALERT AND ORIENTED TIMES FOUR. PATIENT WITH BACK BRACE FOR AMBULATION. PATIENT DAVID NDEPENDENT IN THE ROOM/HALLWAY WITH CANE AND FRONT WHEELED WALKER. PATIENT HAS PT AND OT ORDERED. PATIENT WITH NO IV SITE. WHEN THIS RN ASKED ABOUT PAIN, PATIENT STATED IT IS BETTER AFTER GETTING THE TYLENOL AND IBUPROFEN WHICH IS SCHEDULED. DRESSINGS ON THE MIDLINE BACK AND THE RIGHT FLANK/HIP CHANGED PER ORDERS. OLD DRESSINGS WITH NO DRAINAGE NOTED. PATIENT DRESSINGS ARE CLEAN, DRY, AND INTACT. EXTRA DRESSING CHANGE SUPPLIES PROVIDED TO THE PATIENT. PATIENT IS ON A REGULAR DIET AND BOWEL TONES ARE ACTIVE IN ALL FOUR QUADRANTS. LAST BM WAS 06/26/24. PATIENT IS ON ROOM AIR AND LUNG SOUNDS ARE CLEAR THROUGHOUT. CARDIAC WITH NORMAL S1 AND S2 ON AUSCULTATION. RADIAL AND PEDAL PULSES ARE STRONG BILATERALLY. SENSATION INTACT WITH NO COMPLAINTS OF NUMBNESS OR TINGLING. CAPILLARY REFILL IN THE UPPER AND LOWER EXTREMITIES IS LESS THAN 3 SECONDS. NO EDEMA NOTED. PATIENT STATED NO FURTHER NEEDS AT THIS TIME. CALL LIGHT AND PERSONAL BELONGINGS ARE WITHIN REACH.
[2024-06-27 09:23] VITALS: BP 112/50
[2024-06-27 09:49] VITALS: BP 130/75
[2024-06-27 09:50] VITALS: BP 130/75
--- NOTE | 2024-06-27 16:14 | NUR ---
Notice of dc, [place] letter, Dc summary faxed to [facility].
== END 2024-06-27 10:00 | disposition home or self-care (01) | DRG 951 ==
LOC: MS 10:18
PROVIDERS: ADMIT Family Medicine; ATTEND Family Medicine
DX: Z51.5 Encounter for palliative care (principal); F05 Delirium due to known physiological condition; G89.18 Other acute postprocedural pain; Z98.1 Arthrodesis status; K59.00 Constipation, unspecified; Z79.82 Long term (current) use of aspirin; Z79.899 Other long term (current) drug therapy
CPT/HCPCS: 97110; 97116; 97161; 97165; 97530; 97535; A9270